=== PATIENT | female | born 1940 | race Caucasian/White ===

== ENCOUNTER → 2023-08-06 09:37 | Outpatient (REF) | payer MEDICARE, SELFPAY | LOC: WOUND 09:37 | PROVIDERS: ATTENDING PHYSICIAN Surgery; REFERRING PHYSICIAN Nurse Practitioner Family | DX: L97.828 Non-pressure chronic ulcer of other part of left lower leg with other specified severity (principal); I87.2 Venous insufficiency (chronic) (peripheral); I73.9 Peripheral vascular disease, unspecified | CPT/HCPCS: 99212 ==

== ENCOUNTER 2023-12-12 20:37 | Inpatient (IN) | payer MEDICARE, SELFPAY ==
[2023-12-12 14:58] VITALS: BP 167/84
--- NOTE | 2023-12-12 16:11 | ED.MUSCINJ ---
HPI-Injury
General
Chief Complaint: Fall
Source: patient and family (son)
Exam Limitations: none
Time Seen by Provider: 12/12/23 15:57
Nursing documentation reviewed up to this point in time: agreed with
Travel History
Have you had any contact with someone who has COVID-19?: No
Do you have any symptoms of coronavirus? Fever > 100 degrees, chills, cough, shortness of breath, sore throat, loss of taste or smell, muscle aches, or headache?: No
History of Present Illness-Injury
Initial Injury comments:
Patient to ED for eval after fall. According to son, patient fell last evening and spent the night on the floor. He states he normally stops over on Sundays to check in with them. States his mother told him not to come because patient and spouse
where feeling sick. Son states his father then called him back and told him about fall. Patient complains of pain to left hip. Has lac to posterior scalp, skin tear to left elbow. Patient states she tripped on kitchen rug last night but was able
to get self up. SOn states she was still on floor when he arrived and that she was hallucinating. She took Tylenol PM but he is not sure how much. States mentation has improved.
Past History
Past History
ED Past Medical History: Hypothyroidism
ED Past Surgical History: Gynecological
Social History
Tobacco: Non-smoker
Alcohol: None
Drug: None
Personal:
Living: with family
Review of Systems
Review of Systems
Allergies reviewed?: Yes
All Other Systems: ROS reviewed and negative except as documented in HPI and ROS
Constitutional: Reports no symptoms
EENT: Reports no symptoms
Respiratory: Reports no symptoms
Cardiac: Reports no symptoms
ABD/GI: Reports no symptoms
: Reports no symptoms
Musculoskeletal: Reports joint pain (Pain to left hip)
Skin: Reports other (skin tear left elbow, laceration posterior scalp)
Neurological: Reports no symptoms
Psychiatric: Reports no symptoms
Musculoskeletal Injury Exam
Musculoskeletal Injury Exam
Left Hip:
Pain with Movement?: Moderate
Tender to palpation?: Moderate
Soft tissue swelling?: None
External deformity and angulation?: None
Joint effusion?: None
Contusion?: Moderate
Hematoma-local bleeding into tissue?: Mild
Strain- Sprain- Tear (Connective tissue injury)?: Moderate
Crepitus with movement?: No
Joint instability?: No
Malalignment/deformity?: No
Range of motion: Limited
Distal skin color and temperature: normal-warm & good color
Capillary Refill: normal
Normal distal neurovascular exam?: Yes
Peripheral Pulses: posterior tibial (left): 3+ and dorsalis pedis (left): 3+
Phy Exam
General Physical Exam
General Presentation: well appearing and mild distress
General age: appears stated age
General Skin: warm and dry
General Habitus: normal
General Mental: alert
Cardiovascular Exam
Cardiovascular Exam: regular rate/rhythm and no edema
Pulmonary Exam
Pulmonary Exam: lungs clear and no respiratory distress
Gastrointestinal Exam
Gastrointestinal Exam: normal bowel sounds and non tender
Musculoskeletal Exam
Musculoskeletal Exam: neuro vasc intact
Skin Exam
Skin Exam: normal color, warm/dry and no rash
Psychiatric Exam
Psychiatric Exam: normal mood/affect
Injury Course
Orders/Labs/Results
Orders:
Orders
12/12/23 Dinner
Regular
At Your Request: Limited Participation
12/12/23 16:10
Hip, Left 2-3 Views [CR Hip - LT w/wo Pel 2-3 Vw*] Urgent
Comment:
Reason For Exam: fall
Include a pelvis x-ray?: Yes
12/12/23 16:13
CT Head W/o Iv Contrast Urgent
Comment:
Reason For Exam: fall
Cervical Spine wo Contrast CT [CT Cervical Spine W/o Iv Contr] Urgent
Comment:
Reason For Exam: fall
12/12/23 16:27
Type+Screen Urgent
CPK [Creatine Phosphokinase] Urgent
Complete Blood Count/With Diff Urgent
Comprehensive Metabolic Panel Urgent
Magnesium Urgent
Comment: ADD-ON
PTT Urgent
Phosphorus Urgent
Comment: ADD-ON
Prothrombin Time Urgent
Vitamin B12 Urgent
Comment: ADD-ON
12/12/23 17:12
0.9% Sodium Chloride 1000 ml [Nss] 1,000 ml IV BOLUS
Morphine Sulfate 2 mg IV NOW STA
Ondansetron Injectable [Zofran] 4 mg IV NOW STA
12/12/23 18:27
Urinalysis Reflex To Culture Urgent
Date Specimen was Collected: 12/12/23
Time Specimen was Collected: 18:24
Urine Microscopic Reflex Cult Urgent
Urine Culture Urgent
JULI Source: U
Specimen Description:
Date Specimen was Collected: 12/12/23
Time Specimen was Collected: 18:24
12/12/23 19:29
Morphine Sulfate 2 mg IV NOW STA
12/12/23 19:56
EKG [Electrocardiogram (*1)] Urgent
Reason for Study: PreOp
12/12/23 19:59
Admit/Transfer Patient As Directed
Co-Sign Provider:
Level of Care: Inpatient admission
Assign to:: Telemetry
Physician / Group: Galen
Diagnosis: Left Hip Fracture
Reason for Telemetry: Angioplasty-complicated
Date to Stop Telemetry: 12/15/23
Time to Stop Telemetry: 11:00
Reason for Hospitalization: Left Hip Fracture
Expected length of stay greater than two midnights?: Yes
ELOS- Estimated Length of Stay in days: 3
I certify the patient meets the requirements for IP care: Yes
12/12/23 20:00
Code Status As Directed
Resuscitation Status: Full Code
12/12/23 20:13
Weight Bearing Status As Directed
Weight bearing to: Left lower extremity
Type: Non Wt. bearing
12/12/23 20:19
Consult Orthopedic [ORTHOPEDIC CONSULT] Urgent
Consulting Provider: Nessa Dunn
Was physician already notified: Yes
12/12/23 21:14
0.9% Sodium Chloride [Nss (Preservative Free)] See Protocol IV PRN PRN
FOLic ACID [Folvite] 1 mg 0.9% Sodium Chloride 50 ml [Nss] 50 ml IV DAILYPRN
HYDROmorphone [Dilaudid] 0.5 mg IV Q4HPRN PRN
Lorazepam [Ativan] 1 mg IV Q1HPRN PRN
Lorazepam [Ativan] 1 mg IV Q2HPRN PRN
Lorazepam [Ativan] 2 mg IV Q1HPRN PRN
Ondansetron Injectable [Zofran] 4 mg IV Q6HPRN PRN
12/12/23 21:14
Case Management Consult Once
Case Management Consult: Other
Comment: Substance abuse counseling
DIETARY CONSULT Routine
Reason for Consult: Nutrition support, possible refeeding guidelines
ORTHOPEDIC CONSULT Routine
Consulting Provider: Nessa Dunn
Was physician already notified: Yes
Reason for consult: L Hip Fracture
Activity As Directed
Activity Level: Ambulate
With Assistance
I/O [Intake/ Output] As Directed
Frequency: Per unit guidelines
MSAS SCORE As Directed
MSAS Score 0-4: Repeat MSAS every 2 hours until 0-4 for three consecutive assessments, then every 4 hours x 48
hours.
MSAS Score 5-7: For MILD withdrawl symptoms. Repeat MSAS and RASS every 2 hours
MSAS Score 8-11: For MODERATE withdrawal symptoms. Repeat MSAS and RASS every 1 hour. Consider ICU or IMU
level of care.
MSAS Score > 11: For SEVERE withdrawal symptoms. Repeat MSAS and RASS every 1 hour. Notify provider, consider
ICU level of care.
MSAS Additional Instructions: If no improvement or no decrease in score from severe to moderate within 12
hours, consult psychiatry
MSAS Notify Provider: Notify provider if patient requires more than 10 mg of Lorazepam in eight hour period.
Pneumatic Compression Sleeves As Directed
Type: Knee high
Vital Signs As Directed
Frequency: Per unit guidelines
Oxygen Therapy [O2 Therapy] [RESP] Routine
Titrate/Wean O2 to maintain O2 sat greater than (%): 94
Rx Incentive Spirometry [RESP] Routine
Frequency: q1h while awake
Ot Eval And Treat Routine
PT Consult [Pt Eval And Treat] Routine
Activity Level: Ambulate
With Assistance
DX Deep Vein Thrombosis Video Routine
12/12/23 22:00
Acetaminophen [Tylenol] 1,000 mg PO TID
12/13/23 Breakfast
NPO
Allow oral meds: Yes
Allow clear liquids: Sips of Clears
NPO for procedure after (time): Midnight
Basic Metabolic Panel IN AM
Complete Blood Count/No Diff IN AM
12/13/23 07:00
CeFAZolin 2 GRAM [Ancef] 2 grams in 10 ml IV PRE PROCEDURE
Povidone Iodine 10% Solution [Povidone Iodine 10%] 114 ml 0.9% Sod Chloride 3000 ml Irr [Nss Irrigation Bag] 3,000 ml IRRIG OR
Tranexamic Acid 3,000 mg 0.9% Sodium Chloride 250 ml [Nss] 250 ml IRRIG OR
12/13/23 08:00
Allopurinol [Zyloprim] 200 mg PO DAILY
Docusate Sodium [Colace] 100 mg PO BID
FOLic ACID [Folvite] 1 mg PO DAILY
Levothyroxine [Synthroid] 50 mcg PO DAILY
Sennosides [Senokot] 8.6 mg PO BID
Thiamine Injection 200 mg IV Q12
12/15/23 11:00
DC Protocol for Telemetry ONCE
12/16/23 08:00
Thiamine HCl [Vitamin B1] 100 mg PO BID
Abnormal Lab Results
12/12/23 12/12/23
16:27 18:27
RBC 3.54 L 10^6/uL
(4.20-5.40)
MCV 104.5 H fL
(81.0-99.0)
MCH 35.6 H pg
(27.0-31.0)
Absolute Neuts (auto) 7.0 H 10^3/uL
(1.4-6.5)
Absolute Lymphs (auto) 1.0 L 10^3/uL
(1.2-3.4)
Neutrophils % 83.4 H %
(42.2-75.2)
Lymphocytes % 11.4 L %
(20.5-51.1)
BUN 20 H mg/dl
(7-17)
Glucose 102 H mg/dl
(70-99)
Total Bilirubin 1.6 H mg/dl
(0.2-1.3)
AST 50 H U/L
(14-36)
Creatine Kinase 418 H U/L
(30-135)
Urine Ketones Trace A
(Negative)
Ur Occult Blood Reflex Trace A
(Negative)
Urine Bacteria (Reflex) Many A
(Negative)
12/12/23 16:27
12/12/23 16:27
*Radiology
Radiology exam reviewed: radiology read reviewed
*Pulse Oximetry
Patient hypoxic: no
*Critical Care Note
Total Time (30-74mins, 75-104mins- exclusive of procedures): Not Applicable
Update Note
Update Note:
Case discussed wtih Dr. Kinsey. Will admit to hospitalist service, NPO after midnight, for OR tomorrow afternoon.
ED Attending Note
-
Portions of this chart may have been created with voice recognition software.� Occasional wrong word or��sound alike� substitutions may have occurred due to the inherent limitations of voice recognition software.
Discharge Plan
Departure
Patient Disposition: Admit
Date of Disposition: 12/12/23
Time of Disposition: :
Presentation/result/management discussed w/ accepting MD/DO: Hospitalist
Condition: Fair
Covid-19: Not Applicable
Discharge Problem:
Closed left hip fracture
Interventions
Interventions:
*Risk Screen - Suicide Last Done: 12/12/23 21:56
*General Assessment Last Done: 12/12/23 14:58
*Neglect/Abuse Screening Last Done: 12/12/23 17:49
ED- Fall Risk Assessment Last Done: 12/12/23 16:48
*ED COVID-19 Vaccine History Last Done: 12/12/23 14:58
*Nursing Disposition Last Done: 12/12/23 21:14
ED-Musculoskeletal Assessment Last Done: 12/12/23 17:49
ED- Neurological Assessment Last Done: 12/12/23 16:48
ED-Skin Assessment Last Done: 12/12/23 17:49
Discharge Date and Time
Discharge Date/Time: 12/12/23 21:14
[2023-12-12 16:36] LABS: % Basophils 0.2 % (0-2); % Eosinophils 0.2 % (0-6); % Immature Granulocytes 0.1 % (0-0.5); % Lymphocytes 11.4 % (20.5-51.1); % Monocytes 4.7 % (1.7-9.3); % Neutrophils 83.4 % (42.2-75.2); Absolute Monocytes 0.4 10^3/uL (0.1-0.6); Hemoglobin 12.6 g/dL (12.0-16.0); Mean Corp Hgb Conc. 34.1 g/dL (33.0-37.0); Mean Corpuscular Hgb 35.6 pg (27.0-31.0); Mean Corpuscular Volume 104.5 fL (81.0-99.0); Mean Platelet Volume 10.1 fL (7.4-10.4); Nucleated Red Blood Cells % 0 %; Platelet Count 273 10^3/uL (130-400); Red Blood Cell Count 3.54 10^6/uL (4.20-5.40); Red Cell Dist. Width 13.2 % (11.5-14.5); White Blood Cell Count 8.4 10^3/uL (4.8-10.8)
[2023-12-12 16:49] LABS: INR 0.82; PT 11.4 Sec (11.4-14.6)
[2023-12-12 16:50] LABS: APTT 33.9 Sec (23.4-35.0)
[2023-12-12 16:56] LABS: ALT (SGPT) 27 U/L (0-35); AST (SGOT) 50 U/L (14-36); Albumin 3.8 g/dl (3.5-5.0); Alkaline Phosphatase 98 U/L (38-126); Blood Urea Nitrogen 20 mg/dl (7-17); Calcium 9.7 mg/dl (8.4-10.2); Carbon Dioxide 27 mmol/L (22-30); Chloride 107 mmol/L (98-107); Creatine Phosphokinase 418 U/L (30-135); Glucose 102 mg/dl (70-99); Sodium 137 mmol/L (135-145); Total Bilirubin 1.6 mg/dl (0.2-1.3); Total Protein 6.7 g/dl (6.3-8.2); eGFR > 60.00
[2023-12-12 17:00] VITALS: BP 187/100
[2023-12-12] MEDS: ZOFRAN 4 MG IV (18:08)
[2023-12-12] MEDS: MORPHINE SULFATE 2 MG IV ×2 (18:08→19:57)
[2023-12-12] MEDS: NSS 1000 IV (18:09)
[2023-12-12 18:38] LABS: Urine Albumin Trace (Neg - Trace); Urine Bilirubin Negative (Negative); Urine Character Clear (Clear); Urine Color Yellow; Urine Glucose Negative (Negative); Urine Ketone Trace (Negative); Urine Leukocyte Negative (Negative); Urine Nitrite Negative (Negative); Urine Occult Blood Trace (Negative); Urine Specific Gravity 1.015 (<1.030); Urine Urobilinogen Negative (Neg - 1+)
[2023-12-12 18:46] LABS: Urine Squamous Cell 0-2 /LPF (Few)
[2023-12-12 18:47] LABS: Urine Bacteria Many (Negative); Urine Red Blood Cell 0-2 /HPF (0-2)
[2023-12-12 18:54] VITALS: BP 186/79
--- NOTE | 2023-12-12 20:08 | HPS.HSE ---
Family Physician
-
Family Physician: Tony Osborne
Chief Complaint
-
L Hip Pain s/p Fall
History of Present Illness
Patient is an 83y F with PMH significant for hypothyroidism and gout who presents to ED complaining of L hip pain s/p fall at home.
Patient states that she was in her kitchen when her foot caught on the edge of a rug and she tripped, falling backwards. She landed on her back and notes that she did strike her head on the floor. She does not believe that she lost consciousness.
Patient was initially able to get up and noted some pain in the neck, back and hip. She noted progressive worsening of the L hip pain as the day went on and eventually presented to the ED for further evaluation and treatment.
History obtained from family is significantly different: Patient reportedly suffered the fall last PM at some point and was unable to get up - remaining on the floor throughout the night. Son arrived at the home today to check on them and
reportedly found the past still on the floor and hallucinating. She had apparently taken Tylenol PM last evening to sleep - which is not unusual for her. Patient was brought to the ED for further evaluation.
Patient denies any prodrome of lightheadedness, dizziness, chest pain, etc prior to the fall.
Medical History
Past Medical History
Past Medical History: Reports Other
Additional Past Medical History:
Hypothyroidism
Gout
Past Surgical History: Reports Other
Additional Past Surgical History:
Tubal Ligation
Right Finger I&D (gouty tophi)
Social History
Tobacco: Non-smoker
Alcohol: Daily (1-2 drinks daily.)
Drug: None
Personal:
Living: With Family
Family History
Family History: Not pertinent
Allergies / Home Medications
Allergies reflects when Allergies were last updated in [employer].
Home Medications with original date entered in [employer]
Allergy/Medication List:
Allergies
Allergy/AdvReac Type Severity Reaction Status Date / Time
Sulfa (Sulfonamide Allergy Hives Verified 12/12/23 15:05
Antibiotics)
Home Medications
levothyroxine 50 mcg tablet 50 mcg PO DAILY 07/25/23
allopurinol 200 mg tablet 200 mg PO DAILY 12/12/23
cholecalciferol (vitamin D3) 25 mcg (1,000 unit) capsule (Vitamin D3) 25 mcg PO DAILY 12/12/23
cyanocobalamin (vitamin B-12) 1,000 mcg tablet 1,000 mcg PO DAILY 12/12/23
naproxen sodium 220 mg tablet (Aleve) 220 mg PO [id number] PRN mild pain 12/12/23
therapeutic multivitamin 1 tab PO DAILY 12/12/23
Review of Systems
-
History Source: Patient
A 12 point ROS was completed and negative except as noted: Yes
Constitutional: Denies Fever, Fatigue or Chills
EENT: Denies Sore Throat
Respiratory: Denies Cough or Trouble Breathing
Cardiac: Denies Chest Pain or Palpitations
Abdomen/GI: Denies Abdominal Pain, Nausea, Vomiting or Diarrhea
: Denies Dysuria, Frequency or Flank Pain
Musculoskeletal: Reports Joint Pain
Neurological: Denies Dizzy or Headache
Psych: Denies Depression
Physical Exam
Vital Signs
Vital Signs
Temp Pulse Resp BP Pulse Ox
97.4 F 74 18 186/79 97
12/12/23 18:54 12/12/23 18:54 12/12/23 18:54 12/12/23 18:54 12/12/23 18:54
Physical Exam
General: Other (83y F in mild distress due to pain.)
HEENT: Moist mucous membranes and PERRLA
Respiratory: Clear; No Wheezes, Rales or Rhonchi
Cardiac: S1/S2, Regular Rhythm, Bradycardia and Murmur (II/ SOHAIL)
GI: Soft, Non Tender, Non Distended and Normal Bowel Sounds
Musculoskeletal: No Clubbing, No Edema and Other (Tenderness over the L greater trochanter area. LLE is not shortened / rotated.)
Neuro: AO x 3
Laboratory Results
-
12/12/23 16:
12/12/23 16:
Laboratory Results
PT 11.4 Sec (11.4-14.6) 12/12/23 16:
INR 0.82 12/12/23 16:
APTT 33.9 Sec (23.4-35.0) 12/12/23 16:
Total Bilirubin 1.6 mg/dl (0.2-1.3) H 12/12/23 16:
AST 50 U/L (14-36) H 12/12/23 16:
ALT 27 U/L (0-35) 12/12/23 16:
Alkaline Phosphatase 98 U/L (38-126) 12/12/23 16:
Impression/Plan
-
A/P: Patient is an 83y F with PMH significant for hypothyroidism and gout who presents to ED for evaluation of L hip pain s/p fall at home.
Left Hip Fracture
- Admit for further evaluation and treatment.
- Unclear mechanism of fall given variable histories (see below).
- Ortho evaluation for operative repair.
- EKG in the ED shows atrial flutter with controlled ventricular response. No known prior h/o same.
- Will ask Cardiology to evaluate pre-op. See additional below.
- Patient has no personal history of LA, CVA, complications related to surgery or anesthesia.
- Post-op PT / OT, DVT prophylaxis, etc per Ortho.
- Pain control / supportive care overnight. NPO after midnight.
Fall at Home
- Unclear mechanism. Complicated somewhat by daily EtOH use and Tylenol PM use.
- Monitor on tele overnight.
- PT / OT evaluations post-op as noted above.
- Avoid sedating meds.
Atrial Flutter
- EKG done in the ED routinely shows patient to be in atrial flutter with controlled ventricular response around 60 bpm.
- New diagnosis.
- Will ask Cardiology to evaluate as noted above.
- No need for rate control medications at present.
- Hold on initiation of anticoagulation given recent trauma / planned surgery.
Hypothyroidism
- Continue current T4 supplementation.
Gout
- Stable. Continue allopurinol.
Alcohol Use Disorder
- Daily EtOH use per patient 1-2 cocktails per day.
- Macrocytosis noted on labs - check B12.
- Thiamine/ folate replacement.
- Follow for symptoms of withdrawal and treat if necessary.
DVT Prophylaxis: SCDs for now. Post-op per Ortho.
Code Status: Full
--- NOTE | 2023-12-12 20:24 | CON.ORTHO ---
Consultation
-
Date/Time Consultation Requested: 12/12/2023 @ 20:19
Date/Time Consultation Performed: 12/12/2023 @ 20:40
Requesting Provider: Isabel Mendoza NP
Performing Provider: Stiven Moralez PA-C for Dr. Nessa Dunn DO
Reason for Consultation: Left Femoral Neck Fracture
Consultation - Orthopedics
History
HPI: The patient is an 83-year-old female with a past medical history significant for hypothyroidism and gout who presented to [facility] Emergency Department with left hip pain after sustaining a mechanical fall. According to the patient
and her son, she sustained a fall last evening (12/11/2023). She states that she tripped on the kitchen rug last night, but was able to eventually get herself up and crawl to her bed. Patient's son reports that he normally stops over on Sundays to
check in and take out the trash. He states that his mother told him not to come because she and her were feeling sick. The son states that his father then called him back and told him about the fall. When she fell, she also sustained a
laceration to the posterior scalp and skin tear to the left elbow. She denies any headache, dizziness, loss of consciousness, or prodrome. Patient was taken to the Emergency Department by her son, where x-rays were obtained revealing a left femoral
neck fracture. Currently, she is resting in bed and does report moderate pain to the left hip. She denies any pain in her left elbow, knees, ankles, right hip, or any pain elsewhere. She denies any numbness or tingling. She reports increased pain
with movement. She does not take any blood thinners. At baseline, patient is ambulatory and sometimes utilizes a cane. She denies any cardiac or pulmonary history. She denies any prior problems with surgery/anesthesia in the past. Orthopedic
surgery was consulted regarding management of her left hip fracture.
PAST MEDICAL HISTORY: Hypothyroidism, Gout.
PAST SURGICAL HISTORY: Gynecological.
SOCIAL HISTORY: Reports occasional alcohol use. Denies any tobacco use. Denies any recreational/illicit drug use. Lives in a two-story home with her . At baseline, she reports that she is fully ambulatory, however occasionally does
ambulate with a cane.
FAMILY HISTORY: Non-contributory.
REVIEW OF SYSTEMS: 12-point review of systems obtained and negative except those mentioned in the HPI
Allergies / Home Medications
Allergy/AdvReac Type Severity Reaction Status Date / Time
Sulfa (Sulfonamide Allergy Hives Verified 12/12/23 15:05
Antibiotics)
Medication Instructions Recorded
levothyroxine 50 mcg tablet 50 mcg PO DAILY 07/25/23
allopurinol 200 mg tablet 200 mg PO DAILY 12/12/23
cholecalciferol (vitamin D3) 25 25 mcg PO DAILY 12/12/23
mcg (1,000 unit) capsule (Vitamin
D3)
cyanocobalamin (vitamin B-12) 1,000 mcg PO DAILY 12/12/23
1,000 mcg tablet
naproxen sodium 220 mg tablet 220 mg PO [id number] PRN mild pain 12/12/23
(Aleve)
therapeutic multivitamin 1 tab PO DAILY 12/12/23
Vital Signs / Lab Results
Temp Pulse Resp BP Pulse Ox
97.4 F 74 18 186/79 97
12/12/23 18:54 12/12/23 18:54 12/12/23 18:54 12/12/23 18:54 12/12/23 18:54
12/12/23 16:27
12/12/23 16:27
RADIOGRAPHIC FINDINGS:
CR Hip - LT w/wo Pel 2-3 Vw was obtained at [facility] on 12/12/2023 and was made available for my review today. Findings: There is a left subcapital hip fracture with approximately 2 cm impaction. No additional acute fractures are noted.
There is moderate bilateral acetabular sclerosis and moderate diffuse joint space narrowing of the right hip joint. There is mild diffuse joint space narrowing the left hip joint. Impression: Acute impacted subcapital left hip fracture. Moderate
right and mild left hip osteoarthritis.
CT Cervical Spine w/o IV contrast was also performed at [facility] on 12/12/2023 and was made available for my review today. Findings: No acute fractures are noted. There is a grade 1 anterior listhesis of C2 on C3. There is severe disc
base narrowing at C3/C4. There is moderate narrowing at C5/C6. Prevertebral soft tissues appear normal. There is mild bilateral apical scarring. Impression: Multilevel cervical spine degenerative disc disease. No acute fractures noted. Grade 1
anterior listhesis of C2 on C3.
PHYSICAL EXAM:
General: Well-developed, well-nourished female in no apparent distress. Oriented to person, place, and year.
HEENT: NCAT, sclera anicteric, normal hearing. Laceration to posterior scalp.
Heart: No JVD.
Lungs: Normal work of breathing on room air.
MSK: Focused examination of the left lower extremity reveals leg shortened and externally rotated. Positive early stage ecchymosis over lateral hip. No erythema or warmth. + Logroll. + Tenderness to palpation of left hip. No reproducible
tenderness to palpation throughout the left knee. Range of motion deferred secondary to known fracture. Able to plantarflex and dorsiflex the left ankle. She is able to wiggle her toes. Sensation is intact to light touch. Calf is soft and
nontender to palpation. Pulses are palpable. Patient is neurovascularly intact about her left lower extremity. Focused examination of the left upper extremity, with attention to the left elbow reveals a skin tear with bandage in place. No
erythema, warmth, or ecchymosis. No reproducible tenderness to palpation throughout the left elbow. Able to demonstrate active range of motion without increased complaints of pain. Able to demonstrate wrist and digital range of motion. Community Health Navigator
strength is equal bilaterally. Pulses are palpable. Capillary refills less than 2 seconds. Sensation is intact to light touch. Patient neurovascularly intact about her left upper extremity.
Assessment / Plan
ASSESSMENT: 83-year-old female with a left subcapital hip fracture.
PLAN: Unfortunately, the patient has sustained a left hip fracture following a mechanical fall yesterday evening. We discussed the treatment options. Recommend operative fixation with left hip hemiarthroplasty. Risk, benefits, potential
complications, and expected postoperative course were reviewed. She agrees to proceed with surgical intervention. Surgical and blood consents were obtained. Consent was left at the OR front desk auxiliary. We will plan for OR tomorrow afternoon under the
direction of Dr. Dunn pending medical clearance to proceed. Patient to remain n.p.o. after midnight for surgical intervention tomorrow. She is to remain nonweightbearing to the left leg until postop. Continue with pain management as needed.
Pre-operative Ancef, iodine irrigation, and TXA irrigation on-call to the OR. Type and Screen completed. Left hip was marked as correct extremity. All of her and her son's questions were answered. We will continue to follow along. Again, we will
plan for surgical intervention tomorrow afternoon, 12/13/2023, under the direction of Dr. Dunn.
[2023-12-12 21:24] VITALS: BP 166/79
[2023-12-12 21:28] VITALS: BMI 19.6
[2023-12-12 21:54] LABS: Magnesium 1.9 mg/dl (1.6-2.3); Phosphorus 3.7 mg/dl (2.5-4.5)
[2023-12-12] MEDS: TYLENOL 1000 MG PO (22:05)
[2023-12-12] MEDS: DILAUDID 0.5 MG IV (23:02)
[2023-12-12 23:06] VITALS: BP 150/52
[2023-12-13] VITALS (8 sets, daily range): BP systolic 123–154; BP diastolic 46–88
[2023-12-13 00:18] LABS: Vitamin B12 726 pg/ml (239-931)
--- NOTE | 2023-12-13 00:49 | SUR.OPER ---
PT is aaox3, reports pain tolerable but hurts with movement. pt and daughter updated on plan of care. bed alarm, static overlay in place. pt is oriented to room w/ call ryan in reach,
pre op ekg completed - shows aflutter/ PABLO Hurtado made aware.
later repeat ekg completed d/t rhythm change: SR w/ 2nd AV block.
pt given Dilaudid for pain w/relief for pain; however pt became a little confused. PABLO Hurtado made aware.
pt attempted to void w/ no success. bladder imbs=[id number]. PABLO Hurtado made aware. - obtained order for straight cath.
--- NOTE | 2023-12-13 06:02 | PTCARENOTE ---
PT is aaox3, reports pain tolerable but hurts with movement. pt and daughter updated on plan of care. bed alarm, static overlay in place. pt is oriented to room w/ call ryan in reach,
pre op ekg completed - shows aflutter/ PABLO Hurtado made aware.
later repeat ekg completed d/t rhythm change: Sr w/ 2nd AV block. pt HR 35-50
pt given Dilaudid for pain w/relief for pain; however pt became a little confused. PABLO Hurtado made aware.
pt attempted to void w/ no success. bladder mhyr=[id number]. PABLO Hurtado made aware. - obtained order for straight cath. pt later straight cath for 700 ml foul smelling urine/
[2023-12-13 06:41] LABS: Hematocrit 33.7 % (37.0-47.0); Hemoglobin 11.3 g/dL (12.0-16.0); Mean Corp Hgb Conc. 33.5 g/dL (33.0-37.0); Mean Corpuscular Hgb 35.5 pg (27.0-31.0); Platelet Count 234 10^3/uL (130-400); Red Blood Cell Count 3.18 10^6/uL (4.20-5.40); Red Cell Dist. Width 13.2 % (11.5-14.5); White Blood Cell Count 6.3 10^3/uL (4.8-10.8)
[2023-12-13 07:17] LABS: Blood Urea Nitrogen 20 mg/dl (7-17); Calcium 8.9 mg/dl (8.4-10.2); Carbon Dioxide 25 mmol/L (22-30); Chloride 105 mmol/L (98-107); Estimated Creatinine Clearance 66 ml/min; Glucose 73 mg/dl (70-99); Potassium 3.7 mmol/L (3.5-5.1); Sodium 137 mmol/L (135-145); eGFR > 60.00
[2023-12-13] MEDS: COLACE 100 MG PO ×2 (08:09→19:35)
[2023-12-13] MEDS: THIAMINE INJECTION 200 MG IV ×2 (08:09→21:38)
[2023-12-13] MEDS: ZYLOPRIM 200 MG PO (08:09)
[2023-12-13] MEDS: FOLVITE 1 MG PO (08:09)
[2023-12-13] MEDS: SYNTHROID 50 MCG PO (08:09)
[2023-12-13] MEDS: TYLENOL 1000 MG PO (08:09)
[2023-12-13] MEDS: SENOKOT 8.59999999999999964 MG PO ×2 (08:10→19:35)
--- NOTE | 2023-12-13 08:14 | W.PN.UPDATE ---
Update Note
Progress Note Update
Ms. Ballard is resting comfortably in bed this morning. She reports her hip pain is well controlled at present. She has no questions or concerns at this time.
Directed exam of the left lower extremity reveals ecchymosis over the greater trochanter. Mild tenderness to palpation about the anterior and lateral hip. ROM deferred secondary to known fracture. Calf soft and nontender. Patient able to wiggle
toes, plantar and dorsiflex ankle. Neurovascularly intact distally. VSS.
Hgb 11.3.
Left subcapital femur fracture
--Plan for patient to go to OR later today for left hip hemiarthroplasty under the direction of Dr. Dunn or Dr. Ewing.
--Non-weight bearing to left lower extremity.
--NPO until surgery. Sips of clears for PO meds OK.
--Continue current pain management regimen.
--T+S completed.
--Irrigation and antibiotics ordered to OR.
--Please reach out with any questions or concerns.
--- NOTE | 2023-12-13 08:15 | CON.CAR ---
Addendum entered and electronically signed by Neal Yoder MD 12/13/23 09:18:
83 yo female with PMH of Wenckebach is admitted following a mechanical fall. There is no history of dizziness/syncope. She uses stairs approx once weekly without CP/PATEL. Exam with RRR, no murmurs, no edema.
Echo (10/01/23): EF 70%, nl RV, no sig valve disease.
Initial EKG showed typical atrial flutter, rate controlled. Follow up EKG showed sinus dilip, Wenckebach.
Tele shows sinus dilip, Wenckebach, and periods of 2:1 conduction overnight.
# Pre-op eval: she can proceed to OR at intermediate risk
# Typical atrial flutter, new, paroxysmal
-will avoid AV bela agents given bradycardia
-CHADS2-VASC = 3. Start eliquis 2.5mg bid (age, weight) when safe post op
# Asymptomatic bradycardia
-sinus dilip, Wenckebach, and periods of 2:1 conduction overnight
-monitor for more advanced heart block
Original Note:
Consultation
Consultation Request
Date/Time Consultation Requested: 12/12/23 22:30
Date/Time Consultation Performed: 12/13/23 08:15
Requesting Provider: Dr. Aaron
Performing Provider: SHIRA Biggs for Dr. Yoder
Reason for Consultation: New atrial flutter, cardiac risk assessment
Medical History
-
Chief Complaint: Fall
History of Present Illness:
Shikha Ballard is an 83-year-old female (seen in the office for abnormal EKG by Dr. Ramos in 2022), with hypothyroidism, gout, and former smoker who presented to the emergency department after sustaining a fall. She states she tripped over a rug.
She was found on the floor by her family. She was diagnosed with a left hip fracture. The plan is for OR today with orthopedic surgery. She denies ever having syncope. She denies dizziness prior to the fall. She does not have any chest pain or
shortness of breath with activity.
She was seen by Dr. Ramos in the outpatient setting September. This was prompted by an abnormal EKG by her PCP. There was concern for Mobitz 2, no Mobitz 2 identified. She was found to have Mobitz 1 (Xuan). She had an echocardiogram at
that time but did not have any acute findings.
Past Medical History
Past Medical History: Hypothyroidism and Other (Gout)
Social History
Tobacco: Former Smoker
Alcohol: Daily (1-2 [place] every evening)
Drug: None
Personal:
Living: With Family
Family History
Family History: Reviewed & Not Pertinent
Allergies / Home Medications
Allergy/AdvReac Type Severity Reaction Status Date / Time
Sulfa (Sulfonamide Allergy Hives Verified 12/12/23 15:05
Antibiotics)
Medication Instructions Recorded Confirmed Type
levothyroxine 50 mcg tablet 50 mcg PO DAILY 07/25/23 12/12/23 History
allopurinol 200 mg tablet 200 mg PO DAILY 12/12/23 12/12/23 History
cholecalciferol (vitamin D3) 25 25 mcg PO DAILY 12/12/23 12/12/23 History
mcg (1,000 unit) capsule (Vitamin
D3)
cyanocobalamin (vitamin B-12) 1,000 mcg PO DAILY 12/12/23 12/12/23 History
1,000 mcg tablet
naproxen sodium 220 mg tablet 220 mg PO [id number] PRN mild pain 12/12/23 12/12/23 History
(Aleve)
therapeutic multivitamin 1 tab PO DAILY 12/12/23 12/12/23 History
Review of Systems
-
History Source: Patient
All other systems: Negative unless noted
Respiratory: No Symptoms
Cardiac: No Symptoms
Abdomen/GI: No Symptoms
Physical Exam
Vital Signs
Temp Pulse Resp BP Pulse Ox
97.7 F 37 16 143/46 97
12/13/23 03:19 12/13/23 03:19 12/13/23 03:19 12/13/23 03:19 12/13/23 03:19
Lab Results
12/13/23 05:13
12/13/23 05:13
Physical Exam
General: Well Developed, Well Nourished, No Apparent Distress and Comfortable
HEENT: Normocephalic, Anicteric and Moist Mucous Membranes
Respiratory: Clear and Non Labored Respirations
Cardiac: S1/S2, Irregular Rhythm and Peripheral Edema (Trace left ankle edema)
Breast: Deferred by me
GI: Soft, Non Tender and Normal Bowel Sounds
Rectal: Deferred by Provider
Genito-urinary: No Costovertebral Tender
Musculoskeletal: No Clubbing and No Cyanosis
Skin: Warm and Dry
Neuro: AO x 3
Hematologic/Lymphatic: No Lymphadenopathy
Impression / Plan
-
Fall
Left hip fracture
-Planned for OR today
Cardiac risk assessment
-She denies chest pain and shortness of breath at rest and with activity
-Recent echocardiogram without acute findings
-Wenckebach is chronic
Atrial flutter, type unknown
-Intrinsically rate controlled on arrival, now in Mobitz I
-Oral Anticoagulation: None prior to arrival, thomas Apixaban 2.5mg BID (weight < 60kg & age > 80)
-[id number]: Score at least 3 (age 75 or more, female gender)
Wenckebach, chronic
-2:1 overnight, assumed she was asleep
Hypothyroidism, on levothyroxine, TSH pending
Daily alcohol consumption, 1-2 cocktails per day, per primary
Gout, chronic, on allopurinol
Mildly dilated ascending aorta (3.8 cm)
Data Reviewed
-
EKG: Report Reviewed by me (Atrial flutter with variable AV block, inferior ST and T wave abnormality, rate 61)
Radiology: Report Reviewed by me (Left hip: Acute impacted subcapital left hip fracture.)
CT Scan: Report Reviewed by me (Head: No acute disease. Severe chronic left maxillary sinusitis; Cervical spine: Multilevel cervical spine degenerative disc disease. No acute fractures noted. Grade 1 anterolisthesis of C2 on C3.)
Labs: Labs Reviewed by me
Old Records: Reviewed (Outpatient cardiology note)
--- NOTE | 2023-12-13 08:25 | W.PN.HOSP.TC ---
Today's Communication/Plan
-
Surgery today
Assessment / Plan
Assessment / Plan
Physical Exam
General: Not in acute distress
HEENT: Normocephalic
Respiratory: CTAB
Cardiac: S1/S2, Regular Rhythm, Bradycardia and Murmur (II/ SOHAIL)
GI: Soft, Non Tender, Non Distended and Normal Bowel Sounds
Musculoskeletal: No Edema and Other (Tenderness over the L greater trochanter area.� LLE is not shortened / rotated.)
Neuro: AAO x 3

A/P:� Patient is an 83 y/o female with PMH significant for hypothyroidism and gout who presents to [facility] Emergency Department for evaluation of left hip pain s/p fall at home.
Left Hip Fracture
�- Unclear mechanism of fall given variable histories (see below).
�- Ortho evaluation for operative repair.
�- EKG in the ED showed atrial flutter with controlled ventricular response.� No known prior h/o same.
�- Cardiology consulted, recommendations appreciated
�- Patient has no personal history of [place], CVA, complications related to surgery or anesthesia.
�- Post-op PT / OT, DVT prophylaxis, etc per Ortho.
�- Pain control / supportive care overnight.�NPO after midnight.
Fall at Home
�- Unclear mechanism [differing history details from patient/family; suspect she was down overnight and could not get up (family version)].� Complicated somewhat by daily EtOH use and Tylenol PM use.
�- Monitor on tele overnight.
�- PT / OT evaluations post-op as noted above.
�- Avoid sedating meds.
New Paroxysmal Typical atrial flutter
�- EKG done in the ED routinely shows patient to be in atrial flutter with controlled ventricular response around 60 bpm.
�- New diagnosis.
�- Cardiology consulted, recommendations appreciated
�- Avoid AV bela blocking agents given bradycardia
�- Hold on initiation of anticoagulation given recent trauma / planned surgery.
- Per cardiology: CHADS2-VASC = 3. Start eliquis 2.5mg bid (age, weight) when safe post op
Asymptomatic bradycardia
-Consulted cardiology, recommendations appreciated
-Monitor for more advanced heart block
Hypothyroidism
�- Continue current T4 supplementation.
Gout
�- Stable.� Continue allopurinol.
Alcohol Use Disorder
�- Daily EtOH use per patient 1-2 cocktails per day.
�- Macrocytosis noted on labs - Vitamin B12 within normal limits
�- Thiamine/ folate replacement.
�- Follow for symptoms of withdrawal and treat if necessary.
Mildly dilated ascending aorta (3.8 cm)
DVT Prophylaxis:� SCDs for now.� Post-op per Ortho.
Code Status:� Full
Anticipated Discharge: > 48 hours
Subjective/Interval History
-
Date of Service: December 13, 2023
Patient was seen and examined. She reported no pain, and also denied any fever, chest pain or any other complaints.
Objective Data
-
Labs:
Laboratory Results
12/13/23
05:13
WBC 6.3
Hgb 11.3 L
Hct 33.7 L
Plt Count 234
Sodium 137
Potassium 3.7
Chloride 105
Carbon Dioxide 25
BUN 20 H
Creatinine 0.6
Glucose 73
Calcium 8.9
Vital Signs:
Vital Signs
Temp Pulse Resp BP Pulse Ox
97.6 F 42 17 134/54 96
12/13/23 08:22 12/13/23 08:22 12/13/23 08:22 12/13/23 08:22 12/13/23 08:22
I&O
12/12/23 12/13/23 12/14/23
06:59 06:59 06:59
Intake Total 240 / 240
Output Total 700 / 700
Balance -460 / -460
[2023-12-13 09:52] LABS: TSH Reflex To Free T4 6.43 uIU/ml (0.47-4.68)
--- NOTE | 2023-12-13 11:42 | CM ---
Patient was independent [employer], lives with her in a 2 story home w 1 step to enter, couple do not utilize the 2nd floor and live on the first. Patient occasionally uses a straight cane, has a SC and grab bars in the bathroom. She does not have
services in the home. Her does for PT and patient does not remember the agency. Anticipate SNF after discharge. She is in agreement. For surgery today. Will provide Medicare[employer] list after surgery. Patient would like son and to
review as they are physicians. Pharmacy is [facility] in [place] and PCP is Dr. Mcgarry.
Patient reportedly drinks 2 cocktails daily. MD requested CM consult for substance abuse. Discussed with patient. She considers herself a social drinker and declined any literature or services relating to substance abuse.
[2023-12-13 12:17] LABS: Free T4 1.09 ng/dl (0.78-2.19)
--- NOTE | 2023-12-13 17:24 | PTCARENOTE ---
MSAS completed prior to sending patient to OR.
[2023-12-13] MEDS: ROXICODONE 5 MG PO ×2 (17:26→21:41)
[2023-12-13] MEDS: TYLENOL 650 MG PO ×3 (17:26→23:08)
--- NOTE | 2023-12-13 17:57 | PTCARENOTE ---
Pt arrived to [facility] from PACU s/p L hip hemiarthroplasty. NV intact, L hip aquacel C/D/I. Pt states no pain at this time. Pt reoriented to call ryan and room. Call ryan within reach, bed locked and in lowest position.
[2023-12-13] MEDS: BACTROBAN 2% OINTMENT 1 APPLIC NASAL (19:35)
[2023-12-13] MEDS: ASPIRIN 325 MG PO (19:35)
[2023-12-13] MEDS: ANCEF 5 IV (23:08)
[2023-12-14] VITALS (8 sets, daily range): BP systolic 121–151; BP diastolic 51–81; PULSE 80; O2SAT 95–97
--- NOTE | 2023-12-14 00:07 | PTCARENOTE ---
pt finished eating dinner.
later premedicated pt prior to getting OOB.
Pt ambulated halls w/ RW x1-2. pt needs constant hip precautions reminder. kept trying to cross legs while walking. pt ambulated 20 feet then stated she felt a little dizzy. pt ambulated back to bed. VSS.
pt DTV.
pt restug in bed w/ call ryan in reach.
[2023-12-14] MEDS: FLOMAX 0.400000000000000022 MG PO (02:58)
[2023-12-14] MEDS: TYLENOL 650 MG PO ×5 (03:00→23:05)
--- NOTE | 2023-12-14 06:05 | PTCARENOTE ---
py woke up confused thia am - stating she was at home and wanted to sit in her living room. pt reoriented. bed alarm in place. call ryan in reach
--- NOTE | 2023-12-14 06:06 | PTCARENOTE ---
pty bladder scan for 280 at 0200. provided pt w/ flomax - see MAr. later assisted pt to the bathroom. voided a moderated amount. post void bladder scan =320ml.
[2023-12-14 06:14] LABS: Hematocrit 35.3 % (37.0-47.0); Mean Corpuscular Hgb 34.9 pg (27.0-31.0); Mean Corpuscular Volume 102.6 fL (81.0-99.0); Mean Platelet Volume 10.2 fL (7.4-10.4); Platelet Count 292 10^3/uL (130-400); Red Blood Cell Count 3.44 10^6/uL (4.20-5.40); Red Cell Dist. Width 12.9 % (11.5-14.5); White Blood Cell Count 11.5 10^3/uL (4.8-10.8)
[2023-12-14] MEDS: ANCEF 5 IV (06:28)
--- NOTE | 2023-12-14 06:34 | W.PN.ORTHO ---
Today's Communication / Plan
-
83 yo F POD 1 left hip hemiarthroplasty under the direction of Dr. John
--Patient may be weight bearing as tolerated to left lower extremity with walker. We appreciate the assistance of PT/OT.
--DVT Prophylaxis: Per cardiology recommendation, placed order for Eliquis 2.5 mg twice daily.
--Hgb 12.0. Continue to monitor.
--Continue current pain management regimen. Ice and elevation for edema control.
--Surgical dressing to remain in place until 7-10 days post-op. Staple removal at 2 weeks post-op.
--Case management consult for discharge planning.
--Orthopedic surgery will continue to follow along.
Assessment
.
Distal Motor Intact: Yes
Dressing:
Clean, dry and intact.
Assessment:
POD 1 Left Hip Hemiarthroplasty
Plan
.
Surgery / Date: 12/13/[address] John
DVT Prophylaxis: Other
Activity:
Out of bed.
PT/OT
Discharge Information:
Per CM
Subjective
.
.:
The patient is POD 1 following left hip hemiarthroplasty performed Dr. John. She is resting comfortably in bed this morning and denies any complaints of pain in her left hip. She reports that she was working with PT/OT yesterday evening and has
been up and ambulating without any complaints.
Vital Signs and Labs
.
Vital Signs and Labs:
Lab Results
12/14/23 05:17
Temp Pulse Resp BP Pulse Ox
97.6 F 79 18 135/76 96
12/14/23 03:42 12/14/23 03:42 12/14/23 03:42 12/14/23 03:42 12/14/23 03:42
PT 11.4 Sec (11.4-14.6) 12/12/23 16:27
INR 0.82 12/12/23 16:27
Non-invasive Hgb result: 11.7
Physical Exam
-
Directed exam of the left lower extremity reveals surgical dressing clean, dry and intact. No significant tenderness to palpation about the lateral hip. Thigh soft and compressible. Calf soft and nontender. Patient able to wiggle toes, plantar and
dorsiflex ankle. Neurovascularly intact distally.
[2023-12-14 06:56] LABS: ALT (SGPT) 26 U/L (0-35); AST (SGOT) 49 U/L (14-36); Albumin 3.5 g/dl (3.5-5.0); Alkaline Phosphatase 95 U/L (38-126); Blood Urea Nitrogen 28 mg/dl (7-17); Calcium 9.7 mg/dl (8.4-10.2); Carbon Dioxide 18 mmol/L (22-30); Chloride 101 mmol/L (98-107); Estimated Creatinine Clearance 44 ml/min; Glucose 92 mg/dl (70-99); Phosphorus 4.7 mg/dl (2.5-4.5); Potassium 4.6 mmol/L (3.5-5.1); Sodium 134 mmol/L (135-145); Total Bilirubin 0.8 mg/dl (0.2-1.3); Total Protein 6.2 g/dl (6.3-8.2); eGFR > 60.00
[2023-12-14] MEDS: BACTROBAN 2% OINTMENT 1 APPLIC NASAL ×2 (07:42→19:44)
[2023-12-14] MEDS: COLACE 100 MG PO ×2 (07:43→19:43)
[2023-12-14] MEDS: SENOKOT 8.59999999999999964 MG PO ×2 (07:43→19:43)
[2023-12-14] MEDS: FOLVITE 1 MG PO (07:43)
[2023-12-14] MEDS: ELIQUIS 2.5 MG PO ×2 (07:43→19:43)
[2023-12-14] MEDS: THIAMINE INJECTION 200 MG IV ×2 (07:43→19:43)
[2023-12-14] MEDS: ZYLOPRIM 200 MG PO (07:43)
[2023-12-14] MEDS: SYNTHROID 50 MCG PO (07:43)
--- NOTE | 2023-12-14 09:01 | W.PN.HOSP.TC ---
Today's Communication/Plan
-
Please see below
Assessment / Plan
Assessment / Plan
Physical Exam
General: Not in acute distress
HEENT: Normocephalic
Respiratory: CTAB
Cardiac: S1/S2, Regular Rhythm, Murmur (II/ SOHAIL)
GI: Soft, Non Tender, Non Distended and Normal Bowel Sounds
Musculoskeletal: No Edema. Left hip bandage C/D/I.
Neuro: AAO x 3 but sometimes making inaccurate statements

A/P:� Patient is an 83 y/o female with PMH significant for hypothyroidism and gout who presents to [facility] Emergency Department for evaluation of left hip pain s/p fall at home.
Left Hip Fracture status post left hip hemiarthroplasty by Dr. John on 12/14/23
�- Unclear mechanism of fall given variable histories (see below).
�- Ortho evaluation for operative repair.
�- EKG in the ED showed atrial flutter with controlled ventricular response.� No known prior h/o same.
�- Cardiology consulted, recommendations appreciated
�- Patient has no personal history of [place], CVA, complications related to surgery or anesthesia.
�- Post-op PT / OT, DVT prophylaxis, etc per Ortho.
�- Pain control / supportive care
-Weight bearing as tolerated to left lower extremity with walker.
-Eliquis 2.5 mg twice daily for DVT prophylaxis
-Ice and elevation for edema control.
-Surgical dressing to remain in place until 7-10 days post-op. Staple removal at 2 weeks post-op.
Acute Encephalopathy and Psychosis Post-Op
Suspected Urinary Tract Infection
-Possibly effect of post-op state after anesthesia, pain meds, etc.
-Minimize sedating medications as much as possible but treat pain appropriately
-UA suggestive of UTI
-Started Rocephin
-Monitor labs/electrolytes/CBC
-If mental status does not improve, will consult neurology
Acute Urinary Retention
-Urology consulted, recommendations appreciated
-Dr. Boone of urology recommended stopping Flomax given patient's dizziness symptoms
-No fragoso catheter for now but continue bladder scan protocol
-If patient has trouble urinating, then Fragoso Catheter can be placed
Fall at Home
�- Unclear mechanism [differing history details from patient/family; suspect she was down overnight and could not get up (family version)].� Complicated somewhat by daily EtOH use and Tylenol PM use.
�- Monitor on tele
�- PT / OT evaluations post-op as noted above.
�- Avoid/minimize sedating meds.
New Paroxysmal Typical atrial flutter
�- EKG done in the ED routinely shows patient to be in atrial flutter with controlled ventricular response around 60 bpm.
�- New diagnosis.
�- Cardiology consulted, recommendations appreciated
�- Avoid AV bela blocking agents given bradycardia
- Per cardiology: CHADS2-VASC = 3. Start eliquis 2.5mg bid (age, weight) when safe post op
- Continue Eliquis 2.5 mg BID. NO ANTIPLATELET AGENTS PER CARDIOLOGY.
Asymptomatic bradycardia
Wenckebach, chronic
-Consulted cardiology, recommendations appreciated
-Monitor for more advanced heart block
Hypothyroidism
�- Continue current T4 supplementation.
Gout
�- Stable.� Continue allopurinol.
Alcohol Use Disorder
�- Daily EtOH use per patient 1-2 cocktails per day.
�- Macrocytosis noted on labs - Vitamin B12 within normal limits
�- Thiamine/ folate replacement.
�- Follow for symptoms of withdrawal and treat if necessary.
Mildly dilated ascending aorta (3.8 cm)
DVT Prophylaxis:� Eliquis
Code Status:� Full
Anticipated Discharge: 24 - 48 hours
Subjective/Interval History
-
Date of Service: December 14, 2023
Patient was seen and examined. She was comfortably sitting in her chair, and denied any new significant complaints. Her daughter mentioned that patient appeared to be more off/confused than her baseline.
Objective Data
-
Labs:
Laboratory Results
12/14/23
05:17
WBC 11.5 H
Hgb 12.0
Hct 35.3 L
Plt Count 292 D
Sodium 134 L
Potassium 4.6
Chloride 101
Carbon Dioxide 18 L
BUN 28 H
Creatinine 0.9
Glucose 92
Calcium 9.7
Total Bilirubin 0.8
AST 49 H
ALT 26
Alkaline Phosphatase 95
Vital Signs:
Vital Signs
Temp Pulse Resp BP Pulse Ox
97.8 F 80 16 142/57 96
12/14/23 07:34 12/14/23 07:34 12/14/23 07:34 12/14/23 07:34 12/14/23 07:34
I&O
12/13/23 12/14/23 12/15/23
06:59 06:59 06:59
Intake Total 240 / 240 1090 / 1090
Output Total 700 / 700
Balance -460 / -460 1090 / 1090
--- NOTE | 2023-12-14 09:07 | W.PN.CD ---
Today's Communication / Plan
-
OK for home
I reviewed signs of bleeding (ICH/GI bleeding)
New/resumed Eliquis 2.5 BID, no antiplatelet agents
F/u in our office (recently saw Dr. Ramos)
Impression / Plan
-
Fall, mechanical
Left hip fracture
-No cardiac complication detected
Atrial flutter, typical, paroxysmal
-Intrinsically rate controlled on arrival, now in Mobitz I
-Oral Anticoagulation: => now back on Apixaban 2.5mg BID (weight < 60kg & age > 80)
-[id number]: Score at least 3 (age 75 or more, female gender)
Wenckebach, chronic (4-3 and rarely 2:1), NO SYMTOMS
-2:1 overnight, assumed she was asleep
Hypothyroidism, on levothyroxine, TSH pending
Daily alcohol consumption, 1-2 cocktails per day, per primary
Gout, chronic, on allopurinol
Mildly dilated ascending aorta (3.8 cm)
Physical Exam
Vital Signs/Labs
Vital Signs
Temp Pulse Resp BP Pulse Ox
97.8 F 80 16 142/57 96
12/14/23 07:34 12/14/23 07:34 12/14/23 07:34 12/14/23 07:34 12/14/23 07:34
12/13/23 12/14/23 12/15/23
06:59 06:59 06:59
Actual Weight 58.513 kg
12/14/23 05:17
12/14/23 05:17
PT 11.4 Sec (11.4-14.6) 12/12/23 16:27
INR 0.82 12/12/23 16:27
APTT 33.9 Sec (23.4-35.0) 12/12/23 16:27
Magnesium 2.0 mg/dl (1.6-2.3) 12/14/23 05:17
Free T4 1.09 ng/dl (0.78-2.19) 12/13/23 05:13
Physical Exam
Constitutional: No acute distress
Cardiovascular: Rhythm & rate is regular and Pedal edema is absent
Respiratory: Respiratory effort normal
GI: Soft and Distention absent
Neuro/Psych: AO x 3
Data Reviewed
-
Date of Service: December 14, 2023
--- NOTE | 2023-12-14 11:20 | W.PN.URO.CBU ---
Today's Communication / Plan
-
no pvr ubless pt c/o disfficulty voiding or abd pain distention d/c flomax
Assessment / Plan
-
pt without antecedent h/o retention nor recent utis was found to have 700cc in bladder preop on analgesics after sustaining hip fx. urine cx returned e coli After her ortho procedure her pvr was measured to be 100 [id number] on flomax and
pt feels that she is baseline Plan to hold flomax as pt sl dizzy and treat e coli will keep fragoso out unless pt c/o distension pain etc Family aware
Diagnosis
-
Date of Service: December 14, 2023
-
Patient Diagnosis:urinaryretentio , bacteruria
Post Op Day:
Subjective
-
asx no dusuria frequency urgency fever
Objective
-
Vital Signs
Temp Pulse Resp BP Pulse Ox
97.8 F 80 16 142/57 96
12/14/23 07:34 12/14/23 07:34 12/14/23 07:34 12/14/23 07:34 12/14/23 08:00
Intake and Output
12/13/23 12/14/23 12/15/23
06:59 06:59 06:59
Intake Total 240 / 240 1090 / 1090
Output Total 700 / 700
Balance -460 / -460 1090 / 1090
Intake:
Oral fluids 240 / 240 990 / 990
IV fluids (Total) 100 / 100
normo 100 / 100
Output:
Straight cath output 700 / 700
Laboratory Results
12/14/23 05:17
12/14/23 05:17
Review of Systems
-
: No Symptoms
Musculoskeletal: Joint Pain and Joint Swelling
Physical Exam
-
General - well developed, well nourished, no acute distress
Chest - clear bilaterally
Abdomen - soft, non-tender, positive bowel sounds, no CVAT, no incisional pain or distention
Genitalia - normal
Rectal - normal
Skin - warm & dry with no rash
Neuro - AOx3, no motor deficits
Extremities - no clubbing, no cyanosis, no edema
Incision - clean, dry
Dressing - clean, dry, intact
Counseling
-
on pvr checks unless pt complains
Care Review
Data Reviewed
Discussed with: Hospitalist, Nursing and Family
CT Scan: Image Pers Reviewed
[2023-12-14] MEDS: ROCEPHIN 1000 MG IV (12:30)
[2023-12-14] MEDS: STERILE WATER FOR INJECTION 10 ML IV (12:30)
--- NOTE | 2023-12-14 13:14 | CM ---
CM following re: discharger planning.
Reviewed pt's chart, met with pt. Pt's and daughter Sary [phone] at bedside and pt's son Sanju who is a physician was on conference call [phone].
PT and OT evaluations noted - SNF level of care recommended. Both pt and her family are aware, expressed their agreement. A list of SNFs provided to pt and her family. Following SNFs preferred: [facility], [facility] or [facility]. A referral to above
SNFs made.
IMM reviewed, placed on chart, pt has a copy.
D/C plan: preferred SNF: [facility], or [facility].
CM will follow with discharge plan updates as hospitalization progresses
[2023-12-14] MEDS: TYLENOL PO (16:24)
[2023-12-15] VITALS (8 sets, daily range): BP systolic 117–145; BP diastolic 50–71; PULSE 79–82; O2SAT 95
[2023-12-15] MEDS: TYLENOL 650 MG PO ×5 (03:15→20:43)
[2023-12-15 06:22] LABS: Hematocrit 29.6 % (37.0-47.0); Hemoglobin 10.2 g/dL (12.0-16.0); Mean Corp Hgb Conc. 34.5 g/dL (33.0-37.0); Mean Corpuscular Hgb 35.7 pg (27.0-31.0); Mean Corpuscular Volume 103.5 fL (81.0-99.0); Mean Platelet Volume 10.1 fL (7.4-10.4); Platelet Count 235 10^3/uL (130-400); Red Blood Cell Count 2.86 10^6/uL (4.20-5.40); Red Cell Dist. Width 12.8 % (11.5-14.5)
[2023-12-15 06:42] LABS: ALT (SGPT) 18 U/L (0-35); AST (SGOT) 47 U/L (14-36); Albumin 2.9 g/dl (3.5-5.0); Alkaline Phosphatase 74 U/L (38-126); Blood Urea Nitrogen 29 mg/dl (7-17); Calcium 9.2 mg/dl (8.4-10.2); Carbon Dioxide 23 mmol/L (22-30); Chloride 104 mmol/L (98-107); Estimated Creatinine Clearance 44 ml/min; Glucose 93 mg/dl (70-99); Phosphorus 3.5 mg/dl (2.5-4.5); Potassium 4.3 mmol/L (3.5-5.1); Sodium 135 mmol/L (135-145); Total Bilirubin 0.7 mg/dl (0.2-1.3); Total Protein 5.3 g/dl (6.3-8.2); eGFR > 60.00
--- NOTE | 2023-12-15 07:45 | W.PN.UPDATE ---
Update Note
Progress Note Update
Ms. Ballard is POD 2 following her left hip hemiarthroplasty performed by Dr. John. She is resting comfortably in bed this morning, and endorses only mild aching pain in the hip. She has no questions or concerns at this time.
Directed exam of the left lower extremity reveals Aquacel dressing clean, dry and intact. Mild tenderness to palpation about the hip. Thigh soft and compressible. Calf soft and nontender. Patient able to wiggle toes, plantar and dorsiflex ankle.
Neurovascularly intact distally. VSS.
Hgb 10.2.
83 yo F POD 2 left hip hemiarthroplasty under the direction of Dr. John
--Patient may be weight bearing as tolerated to left lower extremity with walker. Maintain THPs x 6-8 weeks post-op. We appreciate the assistance of PT/OT.
--DVT Prophylaxis: Per cardiology recommendation, placed order for Eliquis 2.5 mg twice daily.
--Hgb 10.2. Continue to monitor.
--Continue current pain management regimen. Ice and elevation for edema control.
--Surgical dressing to remain in place until 7-10 days post-op. Staple removal at 2 weeks post-op. If removed at SNF, follow up in the office at 4 weeks post-op.
--Case management consult for discharge planning.
--Patient is stable post-operatively from an orthopedic standpoint. Please reach out with any additional orthopedic questions or concerns.
[2023-12-15] MEDS: THIAMINE INJECTION 200 MG IV ×2 (08:26→20:44)
[2023-12-15] MEDS: FOLVITE 1 MG PO (08:27)
[2023-12-15] MEDS: SYNTHROID 50 MCG PO (08:27)
[2023-12-15] MEDS: ZYLOPRIM 200 MG PO (08:27)
[2023-12-15] MEDS: COLACE 100 MG PO ×2 (08:27→20:43)
[2023-12-15] MEDS: SENOKOT 8.59999999999999964 MG PO ×2 (08:27→20:43)
[2023-12-15] MEDS: ELIQUIS 2.5 MG PO ×2 (08:28→20:43)
[2023-12-15] MEDS: MILK OF MAGNESIA 30 ML PO (08:29)
--- NOTE | 2023-12-15 09:25 | CM ---
Apixaban 2.5mg BID is $47.00 for 1 month and $141.00 for 3 months.
--- NOTE | 2023-12-15 09:29 | CM ---
Addendum entered by Stephen Puente 12/15/23 11:13:
Per [employer] sales representative Gm, pt is approved for 3 initial days for skilled level of care at [facility] starting tomorrow 12/16/23 till 12/18/23 with LCD 12/18/23 and NRD 12/19/23, For review fax clinical to: [phone]. Auth # is: [id number].
Auth numbers forwarded to [facility] admissions.
to arrange transportation BLS for tomorrow 12/16/23. PMNC completed, left with .
[facility] nursing report: [phone]
Discharge instructions fax: [phone]
D/C plan: [facility] tomorrow 12/16/23.
Addendum entered by Stephen Puente 12/15/23 10:56:
[facility] director of accounts receivable confirmed that pt is accepted for admission to [facility] tomorrow.
[facility]
Accepting MD: Andrei Ruff NPI: [id number]
CM initiated an auth by calling [employer], spoke to [employer] sales representative Gm and she confirmed that pt is approved for SNF level of care at [facility] starting tomorrow. [employer] Gm stated she was not able to initiate a full auth due to their system
being down and she will call me back today with a full authorization. Per Gm, there is no needs to fax clinical.
Awaiting for full authorization from T.
D/C plan: [facility] tomorrow 12/16/23. Awaiting for full auth from [employer].
Original Note:
CM following re: discharge planning.
Reviewed pt's chart, met with pt and spoke to pt's daughter Sary and son Sanju to update on discharge plan progress.
Both pt and her daughter and son are aware that [facility] has no contract with [employer] insurance, referral denied. Both [facility] and [facility] offered a bed on [facility]. CM discussed it with pt and her family and they preferred [facility].
CM spoke to [facility] director of accounts receivable and she stated she will need time till 10-11 a.m to review the case for final determination. Awaiting for final determination from [facility].
MOUNIKA will submit request for an auth to [facility] for skilled level of care at [facility] as soon as [facility] confirms the admission.
D/C plan: [facility] SN. Awaiting for final determination.
CM will follow to assist pt with discharge to [facility]
[2023-12-15] MEDS: ROCEPHIN 1000 MG IV (12:37)
[2023-12-15] MEDS: STERILE WATER FOR INJECTION 10 ML IV (12:38)
--- NOTE | 2023-12-15 12:43 | W.PN.URO.CBU ---
Today's Communication / Plan
-
no gu changes
Assessment / Plan
-
pt without antecedent h/o retention nor recent utis was found to have 700cc in bladder preop on analgesics after sustaining hip fx. urine cx returned e coli After her ortho procedure her pvr was measured to be 100 [id number] on flomax and
pt feels that she is baseline Plan to hold flomax as pt sl dizzy and treat e coli will keep fragoso out unless pt c/o distension pain etc Family aware
Diagnosis
-
Date of Service: December 15, 2023
-
Patient Diagnosis:
Post Op Day:
Patient Diagnosis:urinaryretentio , bacteruria
Post Op Day:
Subjective
-
voiding back to normal
Objective
-
Vital Signs
Temp Pulse Resp BP Pulse Ox
98.2 F 78 16 127/67 93
12/15/23 11:29 12/15/23 11:29 12/15/23 11:29 12/15/23 11:29 12/15/23 11:29
Intake and Output
12/14/23 12/15/23 12/16/23
06:59 06:59 06:59
Intake Total 1090 / 1090 1600 / 1600
Output Total 200 / 200
Balance 1090 / 1090 1600 / 1600 -200 / -200
Intake:
Oral fluids 990 / 990 1600 / 1600
IV fluids (Total) 100 / 100
normo 100 / 100
Output:
Urine, Voided 200 / 200
Other:
Number of approximated MODERATE 1
amounts of urine
Laboratory Results
12/15/23 05:40
12/15/23 05:40
Review of Systems
-
: No Symptoms
Physical Exam
-
General - well developed, well nourished, no acute distress
Chest - clear bilaterally
Abdomen - soft, non-tender, positive bowel sounds, no CVAT, no incisional pain or distention
Genitalia - normal
Rectal - normal
Skin - warm & dry with no rash
Neuro - AOx3, no motor deficits
Extremities - no clubbing, no cyanosis, no edema
Incision - clean, dry
Dressing - clean, dry, intact
Counseling
-
no gu interventions
--- NOTE | 2023-12-15 15:50 | W.PN.HOSP.TC ---
Today's Communication/Plan
-
Anticipated discharge tomorrow
Assessment / Plan
Assessment / Plan
Physical Exam
General: Not in acute distress
HEENT: Normocephalic
Respiratory: CTAB
Cardiac: S1/S2, Regular Rhythm, Murmur (II/ SOHAIL)
GI: Soft, Non Tender, Non Distended and Normal Bowel Sounds
Musculoskeletal: No Edema. Left hip bandage C/D/I.
Neuro: AAO x 3
Psych: Calm. Intact judgement/insight.

A/P:� Patient is an 83 y/o female with PMH significant for hypothyroidism and gout who presents to [facility] Emergency Department for evaluation of left hip pain s/p fall at home.
Left Hip Fracture status post left hip hemiarthroplasty by Dr. John on 12/14/23
�- Unclear mechanism of fall given variable histories (see below).
�- Ortho evaluation for operative repair.
�- EKG in the ED showed atrial flutter with controlled ventricular response.� No known prior h/o same.
�- Cardiology consulted, recommendations appreciated
�- Patient has no personal history of [place], CVA, complications related to surgery or anesthesia.
�- Post-op PT / OT, DVT prophylaxis, etc per Ortho.
�- Pain control / supportive care
- Weight bearing as tolerated to left lower extremity with walker.
- Eliquis 2.5 mg twice daily for DVT prophylaxis
- Ice and elevation for edema control.
- Surgical dressing to remain in place until 7-10 days post-op (date of operation was 12/14/23). Staple removal at 2 weeks post-op.
Acute Encephalopathy and Psychosis Post-Op - IMPROVING
E. coli Urinary Tract Infection - Pansensitive
-Possibly effect of post-op state after anesthesia, pain meds, etc.
-Minimize sedating medications as much as possible but treat pain appropriately
-UA suggestive of UTI
-Status post Rocephin
-Start Augmentin for another 7 days (first day is 12/15/23)
-Monitor labs/electrolytes/CBC
-If mental status does not improve/declines, will consult neurology
Acute Urinary Retention
-Urology consulted, recommendations appreciated
-Dr. Boone of urology recommended stopping Flomax given patient's dizziness symptoms
-No fragoso catheter for now but continue bladder scan protocol
-If patient has trouble urinating, then Fragoso Catheter can be placed
Fall at Home
�- Unclear mechanism [differing history details from patient/family; suspect she was down overnight and could not get up (family version)].� Complicated somewhat by daily EtOH use and Tylenol PM use.
�- Monitor on tele
�- PT / OT evaluations post-op as noted above.
�- Avoid/minimize sedating meds.
New Paroxysmal Typical atrial flutter
�- EKG done in the ED routinely shows patient to be in atrial flutter with controlled ventricular response around 60 bpm.
�- New diagnosis.
�- Cardiology consulted, recommendations appreciated
�- Avoid AV bela blocking agents given bradycardia
- Per cardiology: CHADS2-VASC = 3.
- Continue Eliquis 2.5 mg BID. NO ANTIPLATELET AGENTS PER CARDIOLOGY.
Asymptomatic bradycardia
Wenckebach, chronic
-Consulted cardiology, recommendations appreciated
-Monitor for more advanced heart block
Hypothyroidism
�- Continue current T4 supplementation.
Gout
�- Stable.� Continue allopurinol.
Alcohol Use Disorder
�- Daily EtOH use per patient 1-2 cocktails per day.
�- Macrocytosis noted on labs - Vitamin B12 within normal limits
�- Thiamine/ folate replacement.
�- Follow for symptoms of withdrawal and treat if necessary.
Mildly dilated ascending aorta (3.8 cm)
Avendaño Wound
- Consulted wound care, recommendations appreciated
DVT Prophylaxis:� Eliquis
Code Status:� Full
Anticipated Discharge: Within 24 hours
Subjective/Interval History
-
Date of Service: December 15, 2023
Patient was seen and examined. She reported no pain, was sitting in her chair, eating breakfast and denied any new symptoms or complaints.
Objective Data
-
Labs:
Laboratory Results
12/15/23
05:40
WBC 7.0
Hgb 10.2 L
Hct 29.6 L
Plt Count 235
Sodium 135
Potassium 4.3
Chloride 104
Carbon Dioxide 23
BUN 29 H
Creatinine 0.9
Glucose 93
Calcium 9.2
Total Bilirubin 0.7
AST 47 H
ALT 18
Alkaline Phosphatase 74
Vital Signs:
Vital Signs
Temp Pulse Resp BP Pulse Ox
98.2 F 78 16 127/67 93
12/15/23 11:29 12/15/23 11:29 12/15/23 11:29 12/15/23 11:29 12/15/23 11:29
I&O
12/14/23 12/15/23 12/16/23
06:59 06:59 06:59
Intake Total 1090 / 1090 1600 / 1600
Output Total 200 / 200
Balance 1090 / 1090 1600 / 1600 -200 / -200
--- NOTE | 2023-12-15 16:45 | WOUNDNOTE ---
LLE (LOWER ANTERIOR)
--- NOTE | 2023-12-15 16:45 | WOUNDNOTE ---
[facility] RN note: Patient admitted s/p fall, L hip fracture. s/p L hemiarthroplasty 12/13/[address] John. Plan is SNF rehab (PR) when discharged.
See H&P for complete history.
PMH: gout, ETOH use disorder (1-2 cocktails per day), R finger I+D, venous insufficiency, slowly healing L campoverde wound from a fall in April. She follows [facility]. Last visit to [facility] 10/04/23. Wound care has been honey gel, silicone border foam daily,
knee high Tubigrip.
Wound Location and type/assessment: Patient admitted with: L lower campoverde full thickness wound to subcutaneous layer, pink with about 80% yellow fibrin and local erythema. +1 LLE edema. Trace RLE edema. +Pedal pulses heard via portable Doppler. Skin
on heels intact. SHERI Scott reports sacral skin intact. Patient sitting in a high chair. 09/29/23 arterial Doppler R PARVIN .75, R toe .50; L PARVIN .77, L toe .45.
Appetite: good.
Pressure redistribution devices in place: Waffle air overlay.
Plan: LLE dressing changed. Air chair cushion given. Instructed patient pressure injury prevention measures. Chana texted herman Hammer asking if thigh high TEDs and SCD order can be discontinued (continue foot pumps) and if knee high
Tubigrip can be ordered. Await response.
Will confirm orders with hospitalist and updated SHERI Trivedi.
Care plan to be updated and will follow as needed.
Recommend follow up at wound care center upon discharge.
[2023-12-15] MEDS: AUGMENTIN 875 MG/125 MG 1 TABLET PO (20:43)
[2023-12-16] MEDS: TYLENOL PO (00:29)
[2023-12-16 03:05] VITALS: BP 123/59
[2023-12-16] MEDS: TYLENOL 650 MG PO ×4 (04:10→15:58)
[2023-12-16 06:40] LABS: Hematocrit 29.2 % (37.0-47.0); Hemoglobin 9.9 g/dL (12.0-16.0); Mean Corp Hgb Conc. 33.9 g/dL (33.0-37.0); Mean Corpuscular Hgb 34.6 pg (27.0-31.0); Mean Corpuscular Volume 102.1 fL (81.0-99.0); Platelet Count 243 10^3/uL (130-400); Red Blood Cell Count 2.86 10^6/uL (4.20-5.40); White Blood Cell Count 6.6 10^3/uL (4.8-10.8)
[2023-12-16 07:00] VITALS: BP 137/64
[2023-12-16 07:00] LABS: ALT (SGPT) 28 U/L (0-35); AST (SGOT) 72 U/L (14-36); Albumin 2.8 g/dl (3.5-5.0); Alkaline Phosphatase 82 U/L (38-126); Blood Urea Nitrogen 26 mg/dl (7-17); Calcium 9.3 mg/dl (8.4-10.2); Carbon Dioxide 25 mmol/L (22-30); Chloride 104 mmol/L (98-107); Estimated Creatinine Clearance 66 ml/min; Glucose 89 mg/dl (70-99); Magnesium 2.1 mg/dl (1.6-2.3); Phosphorus 3.2 mg/dl (2.5-4.5); Potassium 4.4 mmol/L (3.5-5.1); Sodium 135 mmol/L (135-145); Total Bilirubin 0.8 mg/dl (0.2-1.3); Total Protein 5.3 g/dl (6.3-8.2); eGFR > 60.00
[2023-12-16] MEDS: AUGMENTIN 875 MG/125 MG 1 TABLET PO (08:10)
[2023-12-16] MEDS: SENOKOT 8.59999999999999964 MG PO (08:10)
[2023-12-16] MEDS: ELIQUIS 2.5 MG PO (08:10)
[2023-12-16] MEDS: VITAMIN B1 100 MG PO (08:11)
[2023-12-16] MEDS: FOLVITE 1 MG PO (08:11)
[2023-12-16] MEDS: ZYLOPRIM 200 MG PO (08:11)
[2023-12-16] MEDS: SYNTHROID 50 MCG PO (08:11)
[2023-12-16] MEDS: COLACE 100 MG PO (08:11)
--- NOTE | 2023-12-16 08:12 | WOUNDNOTE ---
WO RN Note: Dr. Cardoso approved local wound care LLE. Updated Dr. Mancuso who had seen patient before who requested adding 'make appt with vascular' in the discharge instructions. Updated care plan and discharge instructions.
--- NOTE | 2023-12-16 10:46 | CM ---
CM following re: discharge planning.
Reviewed pt's chart, met with pt.
According to MD pt is medically stable to be discharged today. Pt is aware, expressed her agreement. IMM reviewed yesterday.
CM spoke to [facility] gaming director and she confirmed that pt is accepted for admission today.
Pt is approved by [employer] for 3 initial days for skilled level of care at [facility] starting today 12/16/23 till 12/18/23 with LCD 12/18/23 and NRD 12/19/23, For review fax clinical to: [phone]. Auth # is: [id number].
to arrange transportation BLS. PMNC completed and is on chart.
[facility] nursing report: [phone]
Discharge instructions fax: [phone]
D/C plan: [facility]
[2023-12-16 11:00] VITALS: BP 119/82
--- NOTE | 2023-12-16 11:33 | W.PN.HOSP.TC ---
Addendum entered and electronically signed by Myles Cardoso MD 12/19/23 08:26:
Concern for Acute Blood Loss Anemia Status Post Surgery
Alcohol Use Disorder - Suspected Mild Alcohol Use Disorder
Original Note:
Today's Communication/Plan
-
Discharge today
Assessment / Plan
Assessment / Plan
Physical Exam
General: Not in acute distress
HEENT: Normocephalic
Respiratory: CTAB
Cardiac: S1/S2, Regular Rhythm, Murmur (II/ SOHAIL)
GI: Soft, Non Tender, Non Distended and Normal Bowel Sounds
Musculoskeletal: No Edema. Left hip bandage C/D/I.
Neuro: AAO x 3
Psych: Calm. Intact judgement/insight.

A/P:� Patient is an 83 y/o female with PMH significant for hypothyroidism and gout who presents to [facility] Emergency Department for evaluation of left hip pain s/p fall at home.
Left Hip Fracture status post left hip hemiarthroplasty by Dr. John on 12/14/23
�- Unclear mechanism of fall given variable histories (see below).
�- Ortho evaluation for operative repair.
�- EKG in the ED showed atrial flutter with controlled ventricular response.� No known prior h/o same.
�- Cardiology consulted, recommendations appreciated
�- Patient has no personal history of [place], CVA, complications related to surgery or anesthesia.
�- Post-op PT / OT, DVT prophylaxis, etc per Ortho.
�- Pain control / supportive care
- Weight bearing as tolerated to left lower extremity with walker.
- Eliquis 2.5 mg twice daily for DVT prophylaxis
- Ice and elevation for edema control.
- Surgical dressing to remain in place until 7-10 days post-op (date of operation was 12/14/23). Staple removal at 2 weeks post-op.
Acute Encephalopathy and Psychosis Post-Op - IMPROVING
E. coli Urinary Tract Infection - Pansensitive
-Possibly effect of post-op state after anesthesia, pain meds, etc.
-Minimize sedating medications as much as possible but treat pain appropriately
-UA suggestive of UTI
-Status post Rocephin
-Continue Augmentin for another 5.5 days (first day was 12/15/23)
-Monitor labs/electrolytes/CBC
Acute Urinary Retention
-Urology consulted, recommendations appreciated
-Dr. Boone of urology recommended stopping Flomax given patient's dizziness symptoms
-No fragoso catheter for now but continue bladder scan protocol
-If patient has trouble urinating, then Fragoso Catheter can be placed
Fall at Home
�- Unclear mechanism [differing history details from patient/family; suspect she was down overnight and could not get up (family version)].� Complicated somewhat by daily EtOH use and Tylenol PM use.
�- Monitor on tele
�- PT / OT evaluations post-op as noted above.
�- Avoid/minimize sedating meds.
New Paroxysmal Typical atrial flutter
�- EKG done in the ED routinely shows patient to be in atrial flutter with controlled ventricular response around 60 bpm.
�- New diagnosis.
�- Cardiology consulted, recommendations appreciated
�- Avoid AV bela blocking agents given bradycardia
- Per cardiology: CHADS2-VASC = 3.
- Continue Eliquis 2.5 mg BID. NO ANTIPLATELET AGENTS PER CARDIOLOGY.
- Follow-up with Dr. Ramos
Asymptomatic bradycardia
Wenckebach, chronic
-Consulted cardiology, recommendations appreciated
Hypothyroidism
�- Continue current T4 supplementation.
Gout
�- Stable.� Continue allopurinol.
Alcohol Use Disorder
�- Daily EtOH use per patient 1-2 cocktails per day.
�- Macrocytosis noted on labs - Vitamin B12 within normal limits
�- Thiamine/ folate replacement.
�- Follow for symptoms of withdrawal and treat if necessary.
Mildly dilated ascending aorta (3.8 cm)
Avendaño Wound
- Consulted wound care, recommendations appreciated
DVT Prophylaxis:� Eliquis
Code Status:� Full
More than 30 minutes spent in discharge including
Final examination of the patient
Summarizing hospital stay
Instructions for continuing care to all relevant caregivers
Preparation of discharge records, prescriptions, and referral forms
Total time spent (in minutes): 40
Anticipated Discharge: Today
Subjective/Interval History
-
Date of Service: December 16, 2023
Patient was seen and examined. She reported no pain or any other new symptoms or complaints.
Objective Data
-
Labs:
Laboratory Results
12/16/23
05:58
WBC 6.6
Hgb 9.9 L
Hct 29.2 L
Plt Count 243
Sodium 135
Potassium 4.4
Chloride 104
Carbon Dioxide 25
BUN 26 H
Creatinine 0.6
Glucose 89
Calcium 9.3
Total Bilirubin 0.8
AST 72 H
ALT 28
Alkaline Phosphatase 82
Vital Signs:
Vital Signs
Temp Pulse Resp BP Pulse Ox
97.6 F 76 16 137/64 94
12/16/23 07:00 12/16/23 07:00 12/16/23 07:00 12/16/23 07:00 12/16/23 07:00
I&O
12/15/23 12/16/23 12/17/23
06:59 06:59 06:59
Intake Total 1600 / 1600 1480 / 1480
Output Total 200 / 200
Balance 1600 / 1600 1280 / 1280
--- NOTE | 2023-12-16 11:54 | W.DS.TRANS ---
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
-
Discharge Instructions:
Discharge Diagnosis/Procedures Left Hip Fracture status post left hip
hemiarthroplasty by Dr. John on 12/14/23
Fall at Home
Acute Encephalopathy and Psychosis Post-Op -
IMPROVING
E. coli Urinary Tract Infection - Pansensitive
Acute Urinary Retention
New Paroxysmal Typical atrial flutter
Asymptomatic bradycardia
Wenckebach, chronic
Hypothyroidism
Gout
Alcohol Use Disorder
Mildly dilated ascending aorta (3.8 cm)
Avendaño Wound
Diet As tolerated
Activity Other activity
Additional Activity Weight bearing as tolerated to left lower
extremity with walker
Driving Restrictions No driving
Other Services PT,OT
Instructions:
Stand-Alone Forms:
Changes to Home Medications: Yes
Discharge Medications:
DC Medications w/original date entered in [employer]
levothyroxine 50 mcg tablet 50 mcg PO DAILY 07/25/23
allopurinol 200 mg tablet 200 mg PO DAILY 12/12/23
cholecalciferol (vitamin D3) 25 mcg (1,000 unit) capsule (Vitamin D3) 25 mcg PO DAILY 12/12/23
cyanocobalamin (vitamin B-12) 1,000 mcg tablet 1,000 mcg PO DAILY 12/12/23
therapeutic multivitamin 1 tab PO DAILY 12/12/23
amoxicillin 875 mg-potassium clavulanate 125 mg tablet 1 tab PO Q12 6 days #12 tabs 12/16/23
apixaban 2.5 mg tablet (Eliquis) 2.5 mg PO BID #60 tabs 12/16/23
docusate sodium 100 mg capsule 100 mg PO BID #60 caps 12/16/23
folic acid 1 mg tablet 1 mg PO DAILY #20 tabs 12/16/23
sennosides 8.6 mg tablet (Senna Lax) 8.6 mg PO BID #60 tabs 12/16/23
thiamine HCl (vitamin B1) 100 mg tablet 100 mg PO BID #14 tabs 12/16/23
Home Medication Changes
New medications include Amoxicillin-Clavulanate, Eliquis, Folic Acid, Thiamine, Docusate and Senna Lax
Holding Cyanocobalamin until outpatient follow-up
Stop Aleve
Pending Results: No
Total time spent discharging patient (in min): 40
[2023-12-16] MEDS: STERILE WATER FOR INJECTION 10 ML IV (13:08)
--- NOTE | 2023-12-16 14:46 | PN.CDI ---
CDI
- -
CDI:
Physician Documentation Request
Admit Date: 12/12/23 20:37
Dear Doctor Janae,
Patients diagnosis includes 'Alcohol use disorder, daily ETOH use per patient 1-2 cocktails per day, follow for symptoms of withdrawal and treat if necessary'
Patient has not received any ativan.
Patient has received thiamine injections
Max MSAS was 2
If possible, please provide further specificity the alcohol use disorder:
Mild
Moderate/severe
other
Use of terms such as suspected, likely, concern for, or probable (associated with a specific diagnosis that is being evaluated, monitored, or treated as if it exists) are acceptable and can be coded in the inpatient setting, when documented at the
time of discharge.
Thank you,
Linda Lynne RN, BSN
CDI Specialist
tiger text
Please use your independent medical judgment in providing your response.
--- NOTE | 2023-12-16 14:50 | PN.CDI ---
CDI
- -
CDI:
Physician Documentation Request
Admit Date: 12/12/23 20:37
Dear Doctor Janae,
12/13 patient underwent Left hip cemented endoprosthesis.
EBL 50 mL
Laboratory Tests
12/12/23 12/15/23
16:27 05:40
Hgb 12.6 10.2 L
Hct 37.0 29.6 L
12/16/23
05:58
Hgb 9.9 L
Hct 29.2 L
Laboratory Tests
12/12/23 12/15/23 12/16/23
16:27 05:40 05:58
Total Protein 6.7 5.3L 5.3 L
Albumin 3.8 2.9 L 2.8 L
Based on the above, could you please provide a diagnosis hat supports the above lab abnormalities and additional evaluation/monitoring:
Acute blood loss anemia
Protein deficiency anemia
Multifactorial - please specify
Other anemia
Abnormal lab values clinically insignificant
Use of terms such as suspected, likely, concern for, or probable (associated with a specific diagnosis that is being evaluated, monitored, or treated as if it exists) are acceptable and can be coded in the inpatient setting, when documented at the
time of discharge.
Thank you,
Linda Lynne RN, BSN
CDI Specialist
tiger text
Please use your independent medical judgment in providing your response.
[2023-12-16 15:00] VITALS: BP 136/76
--- NOTE | 2023-12-19 08:27 | W.DCSUMMARY ---
Discharge Summary
Discharge Data
Date of Admission: 12/12/23
Date of Discharge: 12/16/23
Total time spent discharging patient (in min): 40
-
Pending Results: No
Hospital Course
83 y/o female who presented with left hip pain following a fall at home. Patient was found to have a left subcapital femur hip fracture. Cardiology was also consulted, initial electrocardiogram showed typical atrial flutter and follow up
electrocardiogram showed sinus bradycardia, Wenckebach. Patient was cleared for surgery at an intermediate risk. On December 13, 2023, patient had a left hip cemented endoprosthesis. Patient was started on Eliquis 2.5 mg twice daily. Patient was also
started on antibiotics for urinary tract infection. Urology was consulted for urinary retention; urology recommended stopping Tamsulosin due to some dizziness and not placing a Parnell catheter unless patient complained of pain, distension, etc.
Initially she was experiencing some hallucinations/mild confusion post-op but she recovered well and confusion appeared to have improved.
Discharge Plan
-
Patient Disposition: [facility]/SNF
Discharge Diagnosis/Procedures: Left Hip Fracture status post left hip hemiarthroplasty by Dr. John on 12/14/23
Fall at Home
Acute Encephalopathy and Psychosis Post-Op - IMPROVING
E. coli Urinary Tract Infection - Pansensitive
Acute Urinary Retention
New Paroxysmal Typical atrial flutter
Asymptomatic bradycardia
Wenckebach, chronic
Hypothyroidism
Gout
Alcohol Use Disorder
Mildly dilated ascending aorta (3.8 cm)
Avendaño Wound
Condition: Fair
Diet: As tolerated
Activity: Other activity
Additional Activity: Weight bearing as tolerated to left lower extremity with walker
Driving Restrictions: No driving
Other Services: PT and OT
Activity Restrictions/Additional Instructions:
We will have her follow up in our office. She saw Dr. Ramos August 23, 2023 as a new patient.
L lower avendaño wound-clean with saline or Vashe wound cleanser, honey gel, silicone border foam (add alginate prn large amount of drainage), change daily and prn drainage.
Bilateral knee high Tubigrip as tolerated; re-apply daily for skin checks/wound care.
Elevate heels off bed with pillow/s.
Pressure redistributing chair cushion (i.e. Air chair cushion).
Follow up with Dr. Mancuso ( wound care center ).
Make appointment with vascular Dr. Mack or associate ([phone]).
Referrals:
Bret Ramos MD [Active] - in six weeks
Tony Osborne MD [Family Provider] - in less than 1 week
Prescriptions:
New
amoxicillin-pot clavulanate 875-125 mg Tablet
1 tab PO Q12 6 Days Qty: 12 0RF
docusate sodium 100 mg Capsule
100 mg PO BID Qty: 60 1RF
Eliquis 2.5 mg Tablet
2.5 mg PO BID Qty: 60 3RF
folic acid 1 mg Tablet
1 mg PO DAILY Qty: 20 0RF
sennosides [Senna Lax] 8.6 mg Tablet
8.6 mg PO BID Qty: 60 1RF
thiamine HCl (vitamin B1) 100 mg Tablet
100 mg PO BID Qty: 14 0RF
Continued
levothyroxine 50 mcg Tablet
50 mcg PO DAILY
allopurinol 200 mg Tablet
200 mg PO DAILY
therapeutic multivitamin Tablet
1 tab PO DAILY
cholecalciferol (vitamin D3) [Vitamin D3] 25 mcg (1,000 unit) Capsule
25 mcg PO DAILY
Held
cyanocobalamin (vitamin B-12) 1,000 mcg Tablet
1,000 mcg PO DAILY
Hold Instructions: Resume on 01/19/24. Resume if and only if your outpatient physicians say it is okay to resume this medication.
Discontinued
naproxen sodium [Aleve] 220 mg Tablet
220 mg PO [id number] (Reason: mild pain)
Discharge Orders:
Discharge Patient (As Directed); Ordered 12/16/23
Ordered By: Myles Cardoso
Discharge Date and Time
Discharge Date/Time: 12/16/23 17:49
== END 2023-12-16 17:49 | DRG 522 ==
LOC: 2 SOUTH 20:37
PROVIDERS: Nurse Practitioner; Specialist; ADMITTING PHYSICIAN Hospitalist; ATTENDING PHYSICIAN Hospitalist; CONSULT PHYSICIAN Orthopaedic Surgery; CONSULT PHYSICIAN Specialist; EMERGENCY PHYSICIAN Emergency Medicine; FAMILY PHYSICIAN Internal Medicine Geriatric Medicine; OTHER PHYSICIAN Internal Medicine
PROC: 0SRS019 Replacement of Left Hip Joint, Femoral Surface with Metal Synthetic Substitute, Cemented, Open Approach (ICD-10-PCS; 2023-12-13)
DX: S72.012A Unspecified intracapsular fracture of left femur, initial encounter for closed fracture (principal); I48.92 Unspecified atrial flutter; G93.40 Encephalopathy, unspecified; N39.0 Urinary tract infection, site not specified; D62 Acute posthemorrhagic anemia; Z87.891 Personal history of nicotine dependence; E03.9 Hypothyroidism, unspecified; M1A.9XX1 Chronic gout, unspecified, with tophus (tophi); F10.10 Alcohol abuse, uncomplicated; D75.89 Other specified diseases of blood and blood-forming organs; B96.20 Unspecified Escherichia coli [E. coli] as the cause of diseases classified elsewhere
CPT/HCPCS: 70450; 72125; 73502; 80048; 80053; 81003; 81015; 82550; 82607; 83735; 84100; 84439; 84443; 85025; 85027; 85610; 85730; 86850; 86900; 86901; 87070; 87077; 87086; 87186; 93005; 96361; 96374; 96375; 97116; 97162; 97167; 97530; 97535; 99285; C1713; C1776

== ENCOUNTER → 2023-12-20 11:52 | Outpatient (REF) | payer OTHER, MEDICARE, SELFPAY ==
[2023-12-20 13:00] LABS: % Basophils 0.8 % (0-2); % Eosinophils 3.2 % (0-6); % Immature Granulocytes 0.6 % (0-0.5); % Lymphocytes 27.1 % (20.5-51.1); % Monocytes 9.3 % (1.7-9.3); Absolute Basophils 0.1 10^3/uL (0-0.2); Absolute Eosinophils 0.2 10^3/uL (0-0.7); Absolute Lymphocytes 1.8 10^3/uL (1.2-3.4); Absolute Monocytes 0.6 10^3/uL (0.1-0.6); Absolute Neutrophils 3.9 10^3/uL (1.4-6.5); Hematocrit 30.6 % (37.0-47.0); Hemoglobin 10.3 g/dL (12.0-16.0); Mean Corp Hgb Conc. 33.7 g/dL (33.0-37.0); Mean Corpuscular Volume 104.1 fL (81.0-99.0); Mean Platelet Volume 10.3 fL (7.4-10.4); Nucleated Red Blood Cells % 0 %; Platelet Count 371 10^3/uL (130-400); Red Blood Cell Count 2.94 10^6/uL (4.20-5.40); Red Cell Dist. Width 13.4 % (11.5-14.5); White Blood Cell Count 6.5 10^3/uL (4.8-10.8)
[2023-12-20 13:13] LABS: ALT (SGPT) 38 U/L (0-35); AST (SGOT) 45 U/L (14-36); Albumin 2.9 g/dl (3.5-5.0); Alkaline Phosphatase 74 U/L (38-126); Blood Urea Nitrogen 23 mg/dl (7-17); Calcium 9.1 mg/dl (8.4-10.2); Carbon Dioxide 26 mmol/L (22-30); Chloride 101 mmol/L (98-107); Glucose 82 mg/dl (70-99); Potassium 4.6 mmol/L (3.5-5.1); Sodium 134 mmol/L (135-145); Total Bilirubin 0.8 mg/dl (0.2-1.3); Total Protein 5.4 g/dl (6.3-8.2); eGFR > 60.00
== END ==
LOC: OLABP 11:52
PROVIDERS: ATTENDING PHYSICIAN Family Medicine
DX: R33.9 Retention of urine, unspecified (principal); I48.0 Paroxysmal atrial fibrillation; R00.1 Bradycardia, unspecified; M10.9 Gout, unspecified; F10.10 Alcohol abuse, uncomplicated; N39.0 Urinary tract infection, site not specified
CPT/HCPCS: 36415; 80053; 85025

== ENCOUNTER → 2024-06-15 13:01 | Outpatient (REF) | payer MEDICARE, SELFPAY ==
[2024-06-15 16:40] LABS: % Basophils 0.6 % (0-2); % Eosinophils 1.1 % (0-6); % Immature Granulocytes 1.4 % (0-0.5); % Lymphocytes 27.9 % (20.5-51.1); % Monocytes 5.9 % (1.7-9.3); % Neutrophils 63.1 % (42.2-75.2); Absolute Basophils 0.1 10^3/uL (0-0.2); Absolute Eosinophils 0.1 10^3/uL (0-0.7); Absolute Immature Granulocytes 0.1 10^3/uL (0-0.05); Absolute Lymphocytes 2.3 10^3/uL (1.2-3.4); Absolute Monocytes 0.5 10^3/uL (0.1-0.6); Absolute Neutrophils 5.3 10^3/uL (1.4-6.5); Hematocrit 37.2 % (37.0-47.0); Hemoglobin 12.6 g/dL (12.0-16.0); Mean Corp Hgb Conc. 33.9 g/dL (33.0-37.0); Mean Corpuscular Hgb 33.2 pg (27.0-31.0); Mean Corpuscular Volume 98.2 fL (81.0-99.0); Mean Platelet Volume 10.8 fL (7.4-10.4); Nucleated Red Blood Cells % 0 %; Platelet Count 302 10^3/uL (130-400); Red Blood Cell Count 3.79 10^6/uL (4.20-5.40); Red Cell Dist. Width 14.2 % (11.5-14.5); White Blood Cell Count 8.4 10^3/uL (4.8-10.8)
[2024-06-15 16:58] LABS: ALT (SGPT) 24 U/L (0-35); AST (SGOT) 31 U/L (14-36); Albumin 4.4 g/dl (3.5-5.0); Alkaline Phosphatase 77 U/L (38-126); Blood Urea Nitrogen 29 mg/dl (7-17); Carbon Dioxide 28 mmol/L (22-30); Chloride 102 mmol/L (98-107); Glucose 84 mg/dl (70-99); HDL Cholesterol 78 mg/dl; LDL Cholesterol, Calculated 121 mg/dl; Potassium 4.3 mmol/L (3.5-5.1); Sodium 137 mmol/L (135-145); Total Bilirubin 0.5 mg/dl (0.2-1.3); Total Cholesterol 225 mg/dl (50-199); Total Protein 6.8 g/dl (6.3-8.2); Triglyceride 132 mg/dl (10-149); Uric Acid 3.1 mg/dl (2.5-6.2); Very Low Density Lipoprotein 26 mg/dl (0-30); eGFR > 60.00
[2024-06-15 17:12] LABS: Vitamin D, 25-OH*** 60.1 ng/mL (30-80)
[2024-06-15 17:26] LABS: TSH Reflex To Free T4 3.37 uIU/ml (0.47-4.68)
== END ==
LOC: RAD 13:01
PROVIDERS: ATTENDING PHYSICIAN Registered Nurse; FAMILY PHYSICIAN Nurse Practitioner Family
DX: L97.828 Non-pressure chronic ulcer of other part of left lower leg with other specified severity (principal); I73.9 Peripheral vascular disease, unspecified; S72.002S Fracture of unspecified part of neck of left femur, sequela; S81.802S Unspecified open wound, left lower leg, sequela; R60.0 Localized edema; M1A.9XX1 Chronic gout, unspecified, with tophus (tophi); I10 Essential (primary) hypertension; E03.9 Hypothyroidism, unspecified; I49.9 Cardiac arrhythmia, unspecified; R00.1 Bradycardia, unspecified; G62.9 Polyneuropathy, unspecified; E55.9 Vitamin D deficiency, unspecified; D64.9 Anemia, unspecified
CPT/HCPCS: 36415; 80053; 80061; 82306; 84443; 84550; 85025

== ENCOUNTER → 2025-06-20 11:11 | Outpatient (REF) | payer MEDICARE, SELFPAY | LOC: RAD 11:11 | PROVIDERS: ATTENDING PHYSICIAN Physician Assistant; FAMILY PHYSICIAN Internal Medicine Geriatric Medicine | DX: I73.9 Peripheral vascular disease, unspecified (principal) | CPT/HCPCS: 93922; 93925 ==

== ENCOUNTER → 2025-08-28 08:02 | Outpatient (REF) | payer MEDICARE, SELFPAY ==
[2025-08-28 09:04] LABS: ALT (SGPT) 26 U/L (0-35); AST (SGOT) 29 U/L (14-36); Albumin 4.4 g/dl (3.5-5.0); Alkaline Phosphatase 69 U/L (38-126); Blood Urea Nitrogen 31 mg/dl (7-17); Calcium 10.1 mg/dl (8.4-10.2); Carbon Dioxide 30 mmol/L (22-30); Chloride 103 mmol/L (98-107); Glucose 89 mg/dl (70-99); Potassium 4.6 mmol/L (3.5-5.1); Sodium 136 mmol/L (135-145); Total Protein 6.8 g/dl (6.3-8.2); eGFR > 60.00
[2025-08-28 09:29] LABS: TSH 6.58 uIU/ml (0.47-4.68)
[2025-08-28 09:48] LABS: Vitamin B12 > 1000 pg/ml (239-931)
[2025-08-28 11:38] LABS: Hepatitis B Surface Antigen Negative (Negative)
[2025-08-28 11:57] LABS: Hepatitis C Antibody Negative (Negative)
[2025-08-30 01:59] LABS: ANA, IgG Reflex to HEp-2 Detected (None Detected)
[2025-08-30 14:01] LABS: Lyme Antibody Screen, EIA Negative (Negative)
== END ==
LOC: REG 08:02
PROVIDERS: ATTENDING PHYSICIAN Nurse Practitioner Primary Care
DX: R09.89 Other specified symptoms and signs involving the circulatory and respiratory systems (principal); Z87.891 Personal history of nicotine dependence; G62.9 Polyneuropathy, unspecified
CPT/HCPCS: 36415; 71046; 80053; 82607; 84155; 84165; 84439; 84443; 86038; 86039; 86618; 86704; 86706; 86803; 87340